=== PATIENT | female | born 1980 | race Caucasian/White ===

== ENCOUNTER 2018-07-22 08:26 | Outpatient (RCR) | payer BC | END 2018-07-25 | disposition home or self-care (01) | DX: M54.6 Pain in thoracic spine (principal) ==

== ENCOUNTER 2018-08-13 08:35 | Outpatient (RCR) | payer BC | END 2018-09-22 16:04 | disposition home or self-care (01) | DX: M54.6 Pain in thoracic spine (principal) ==